=== PATIENT | female | born 1995 | race Caucasian/White ===

== ENCOUNTER 2020-06-26 01:46 | Inpatient (IN) ==
[2020-06-26] MEDS: LACTATED RINGER'S 1,000 ML IV PRN ×2 (02:45→04:30)
[2020-06-26] MEDS ORDERED: OXYTOCIN 30 UNITS/500 ML BAG IV PRN ×2 (02:46→11:07)
[2020-06-26] MEDS ORDERED: fentaNYL citrate 100 MCG/2 ML VIAL ONE (02:54)
[2020-06-26] MEDS ORDERED: ePHEDrine sulfate 50 MG/ML AMP ONE (02:54)
[2020-06-26] MEDS ORDERED: BUPIVACAINE 0.25% 30 ML VIAL ONE (02:54)
[2020-06-26] MEDS ORDERED: SODIUM CHLORIDE 0.9% INJ 10 ML VIAL ONE (02:54)
[2020-06-26] MEDS ORDERED: fentaNYL 2MCG/ML ROPIVACAINE 1.25MG/ML 100 ML BAG EPI ONE (02:54)
[2020-06-26 03:06] LABS: Hematocrit (blood only) 33.9 % (37-47); Hemoglobin 11.7 g/dL (12.0-16.0); Mean Corpuscular Hemoglobin 29.8 pg (25-34); Mean Corpuscular Hgb Conc 34.5 g/dL (32-36); Mean Corpuscular Volume 86.5 fL (80-100); Mean Platelet Volume 10.2 fL (7.4-10.4); Platelet Count 225 K/uL (130-400); RDW Coefficient of Variation 12.9 % (11.5-14.5); RDW Standard Deviation 40.5 fL (36.4-46.3); Red Blood Count 3.92 M/uL (4.2-5.4)
[2020-06-26] MEDS ORDERED: fentaNYL 2MCG/ML ROPIVACAINE 1.25MG/ML 100 ML BAG EPI PRN (03:16)
[2020-06-26] MEDS ORDERED: diphenhydrAMINE 50 MG/ML VIAL IV PRN (03:16)
[2020-06-26] MEDS ORDERED: NALOXONE HCL 1 MG in SODIUM CHLORIDE 0.9% 1000ML 1,000 ML IV PRN (03:16)
[2020-06-26] MEDS ORDERED: ONDANSETRON INJ 2 MG/ML 2 ML VIAL IV PRN (03:16)
[2020-06-26] MEDS ORDERED: NALOXONE HCL 0.4 MG/1 ML VIAL/CARP IV PRN (03:16)
[2020-06-26] MEDS ORDERED: ePHEDrine sulfate 50 MG/ML AMP IV PRN (03:16)
--- NOTE | 2020-06-26 03:21 | Anesthesiology Consultation ---
Date of Service June 26, 2020 Assessment & Plan (1) Encounter for pre-operative examination: Chart Review Chart Review: Patient NOT seen in Pre Admission Testing and Acceptable Risk for Labor Epidural Consults Requested none History Height/Weight Height: 5 ft 1 in Weight: 66.224 kg Allergies Allergy/AdvReac Type Severity Reaction Status Date / Time No Known Allergies Allergy Verified 06/24/20 13:53 Medications Home Medications Medication Instructions Recorded Confirmed Last Taken prenat 115-iron tim-zzzbd-snh 1 tab 06/26/20 06/25/20 Active Medications Generic Name Dose Route Start Last Admin Trade Name Freq PRN Reason Stop Dose Admin Lactated Ringer's 1,000 mls @ 125 mls/hr 06/26/20 02:46 06/26/20 02:45 Lr IV 06/28/20 02:45 999 mls/hr .Q8H PRN Administration L&D Protocol Protocol Past Medical History Medical History Encounter for anatomic survey Hx of varicella Exercise / Class Metabolic Activity II 4-5 Yardwork/Stairs/Walk up hill Past Family History Family History Other Unknown family medical history Past Surgical History Surgical History No pertinent past surgical history Past Anesthesia History No Hx of Anesthesia Complications and No Family Hx of Anesthesia Complications History of PONV No Hx of PONV and No Hx of Motion Sickness Social History Smoking Status: Never smoker Hx Alcohol Use: No Hx Substance Use: No Physical Exam Vital Signs Last Vital Signs Temp 36.9 C 06/26/20 02:18 Pulse 68 06/26/20 02:18 Resp 18 06/26/20 02:18 BP 138/94 06/26/20 02:18 Testing Laboratory Results 06/26/20 02:53
--- NOTE | 2020-06-26 08:57 | History & Physical Report ---
Date of Service June 26, 2020 Assessment & Plan (1) Supervision of normal intrauterine in primigravida: 25yo at 40.2 weeks GA. SROM/Labor 1. Fetus: Cat 1 2. Labor: Early. Will augment if needed 3. GBS negative History of Present Illness Primary Care Provider: NO PCP 25yo at 40.2 weeks GA. Presents with SROM and early labor. Pregancy complicated by chlamydia infection with RENZO negative. OB Labs: Blood Type B Positive 11/20/19 Antibody Screen NEGATIVE 11/20/19 Hemoglobin 11.3 g/dL (12.0-16.0) L 04/08/20 Hematocrit 33.4 % (37-47) L 04/08/20 Mean Corpuscular Volume 86.7 fL (80-100) 11/20/19 Platelet Count 295 K/uL (130-400) 11/20/19 Rubella IgG Antibody Immune (Immune) 11/20/19 Rapid Plasma Reagin Nonreactive (Nonreactive) 11/20/19 Hepatitis B Surface Antigen Neg (Neg) 11/20/19 HIV (1&2) Ab and P24 Ag, 4th Gener Neg (Neg) 11/20/19 Glucose 1 Hour 50 gm Load 155 mg/dl (70-130) H 04/08/20 OB Optional Labs: Chlamydia trachomatis RNA NOT DETECTED (NOT DETECTED) 05/27/20 Neisseria gonorrhoeae RNA NOT DETECTED (NOT DETECTED) 05/27/20 Allergies Allergy/AdvReac Type Severity Reaction Status Date / Time No Known Allergies Allergy Verified 06/24/20 13:53 Home Medications Medication Instructions Recorded Confirmed Type prenat 115-iron mre-rjezm-hvn 1 tab 06/26/20 History Patient History Medical History Encounter for anatomic survey Hx of varicella Surgical History No pertinent past surgical history Family History Other Unknown family medical history Social History (Updated 11/14/19 @ 13:13 by Giuliana Graf) Smoking Status: Never smoker Hx Alcohol Use: No Hx Substance Use: No Preferred Language: [place] Communication Ability: Effective Beliefs That Will Affect Care: None marital status: Single marital status details: FOB Sanchez Coleman (23) [phone] Current Living Situation: Significant Other Current Living Situation Comment: lives with FOB, 1 dog current occupational status: employed current occupation: [employer]- housing Feels Safe at Home: Yes Safety Concerns: Feels Safe At This Time Physical Exam Genitourinary: OB Exam Abdomen: + vertex Manual OB Exam: + cervical dilation 3 cm, + cervical effacement 90%, + station -2 and + amniotic fluid bloody OB Exam Monitor Tracing: + external FHT monitor used, + external uterine monitor used, + category I and + normal FHT variability; no early decelerations present, no late decelerations present and no variable decelerations Results & Data ([facility]) Vital Signs (Past 12 Hours) Vital Signs Temp Pulse Resp BP 06/26/20 02:18 36.9 C 68 18 138/94 06/26/20 02:15 36.9 C 68 18 138/94 Coding Level of Care Code None Diagnoses Supervision of normal intrauterine in primigravida Z34.00
[2020-06-26] MEDS ORDERED: bisacodyL 10 MG SUPP PR PRN (11:07)
[2020-06-26] MEDS ORDERED: HYDROCORTISONE ACETATE 25 MG SUPP PR PRN (11:07)
[2020-06-26] MEDS ORDERED: SUPERCREAM 0.870% 15 GM JAR EXT PRN (11:07)
[2020-06-26] MEDS ORDERED: oxyCODONE/ACETAMINOPHEN 5mg/325mg TAB PO PRN (11:07)
[2020-06-26] MEDS ORDERED: ACETAMINOPHEN 325 MG TAB PO PRN (11:07)
[2020-06-26] MEDS ORDERED: DIPHTHERIA/TETANUS/PERTUSSIS 0.5 ML SYR/VIAL IM ONE (11:07)
[2020-06-26] MEDS ORDERED: BENZOCAINE 20% AER SPR 82.5 GM CAN EXT PRN (11:07)
--- NOTE | 2020-06-26 11:42 | Delivery Summary ---
Vaginal Delivery Summary Date of Service June 26, 2020 The patient is a 25-year-old 1 P0 white female who presented at 40-2/7 weeks in active labor. Membranes ruptured spontaneously for clear fluid. She received effective epidural analgesia. There was still a fore bag present and this was ruptured for additional clear fluid at 7 cm of dilation. She progressed quickly to full dilation and pushed effectively over intact perineum for delivery of a viable female infant. The rest of the delivered easily and was placed on the mother's abdomen for further attention and drying. There was poor respiratory effort initially and the baby was evaluated and CPAP was begun. Please see the nursing notes for further details. The placenta was expressed intact with a three-vessel cord. Bilateral first-degree labial lacerations were repaired with 3-0 chromic in the usual fashion. Estimated blood loss was 350 cc. bleeding was controlled with dilute Pitocin. Mother was in stable condition after delivery the baby was taken to the nursery for further evaluation by Dr. Toney. At the time of this dictation, the infant was being weaned off of O2. MNP Vaginal Delivery Charge Vaginal Delivery Codes: 39525 global code for the antepartum, delivery, and post-
--- NOTE | 2020-06-26 15:29 | Anesthesia Procedure Note ---
Date of Service June 26, 2020 Anesthesia Post Epidural Note Vital Signs Vital Signs: Temp Pulse Resp BP Pulse Ox 36.8 C 106 H 20 109/64 96 06/26/20 14:45 06/26/20 14:50 06/26/20 14:45 06/26/20 14:50 06/26/20 10:55 Pain Intensity Lower Abdomen: Pain Intensity: 0 Notes Mental Status: alert / awake / arousable and participated in evaluation Nausea / Vomiting: adequately controlled Pain: adequately controlled Airway Patency, RR, SpO2: stable & adequate BP & HR: stable & adequate Hydration State: stable & adequate Neuraxial Anesthesia: was administered and sensory block is resolving Anesthetic Complications: no major complications apparent Epidural: Removed without complications and With tip intact
[2020-06-26] MEDS: DOCUSATE SODIUM 100 MG CAP PO SCH (20:54)
[2020-06-26] MEDS: IBUPROFEN 600 MG TAB PO PRN (20:54)
[2020-06-27 07:28] LABS: Hematocrit (blood only) 30.9 % (37-47); Hemoglobin 10.3 g/dL (12.0-16.0); Mean Corpuscular Hemoglobin 29.5 pg (25-34); Mean Corpuscular Hgb Conc 33.3 g/dL (32-36); Mean Corpuscular Volume 88.5 fL (80-100); Mean Platelet Volume 10.2 fL (7.4-10.4); Platelet Count 222 K/uL (130-400); RDW Coefficient of Variation 13.4 % (11.5-14.5); RDW Standard Deviation 42.8 fL (36.4-46.3); Red Blood Count 3.49 M/uL (4.2-5.4); White Blood Count 12.48 K/uL (4.8-10.8)
[2020-06-27] MEDS ORDERED: PRENATAL VITAMIN 1 TAB PO SCH (08:00)
--- NOTE | 2020-06-27 08:12 | Obstetrical Progress Note ---
Date of Service June 27, 2020 Assessment & Plan (1) Encounter for care and examination after delivery: satisfactory exam continue current care plan Subjective Ambulation: ambulating normally Voiding: no voiding problems Passing Gas:: Yes Diet Tolerance:: regular diet Lochia:: Small Feeding Type:: breast feeding Physical Exam Constitutional WD/WN, vitals as above Psychiatric A+Ox3, euthymic affect Genitourinary OB Exam Abdomen: + fundal height Fundus: + firm and + relation to umbilicus (at U) Results & Data ([facility]) Vital Signs (Past 12 Hours) Vital Signs Temp Pulse Pulse Resp BP Pulse Ox 06/27/20 07:36 97.7 F 80 20 110/69 06/27/20 03:35 98.1 F 80 16 119/67 98 06/27/20 00:00 98.2 F 80 18 118/71 98
[2020-06-27] MEDS: IBUPROFEN 600 MG TAB PO PRN ×2 (08:48→15:38)
[2020-06-27] MEDS: DOCUSATE SODIUM 100 MG CAP PO SCH (08:48)
[2020-06-27] MEDS ORDERED: bisacodyL 5 MG TABEC PO SCH (20:00)
== END 2020-06-27 20:40 | disposition home or self-care (01) | DRG 807 ==
LOC: OPB 01:46 → 4S1 01:49 → 4S2 14:40